=== PATIENT | female | born 1965 | race Caucasian/White ===

== ENCOUNTER → 2016-09-18 | Outpatient (CLI) | payer MEDICARE, MEDICAID ==
[~2016-09-18] MED LIST: CLIN300C93 PO; HYDR-3138 PO; HYDR200T PO; PRED20TA PO
[2016-09-18 09:30] LABS: ASPARTATE AMINO TRANSFERASE 104 U/L (15-37); BLOOD UREA NITROGEN 8 mg/dL (7-18)
[2016-09-18 15:08] LABS: ANA SCREEN POSITIVE (Negative)
[2016-09-18 15:27] LABS: RHEUMATOID FACTOR SCREEN POSITIVE (NEGATIVE)
== END | disposition home or self-care (01) ==
LOC: LAB 08:40
PROVIDERS: ATTEND Internal Medicine
DX: M32.9 Systemic lupus erythematosus, unspecified (principal); I10 Essential (primary) hypertension; K74.69 Other cirrhosis of liver; E87.1 Hypo-osmolality and hyponatremia; B18.2 Chronic viral hepatitis C
CPT/HCPCS: 36415; 80053; 80061; 82306; 84439; 84443; 85025; 85651; 86038; 86039; 86160; 86162; 86200; 86225; 86430; 86431; 86803; 87521; 87522; 87902

== ENCOUNTER 2016-09-26 09:26 | Emergency (ER) | payer MEDICARE, MEDICAID ==
[~2016-09-26] VITALS: Ht 167.6 cm; Wt 77.0 kg
[2016-09-26] MEDS ORDERED: HYDR200T PO (09:39)
[2016-09-26] MEDS ORDERED: LISI-167 PO (09:40)
[2016-09-26 10:29] VITALS: BP 158/111
[2016-09-26 11:32] LABS: BLOOD UREA NITROGEN 11 mg/dL (7-18)
[2016-09-26 11:35] LABS: ASPARTATE AMINO TRANSFERASE 110 U/L (15-37)
== END 2016-09-26 12:12 | disposition home or self-care (01) ==
LOC: ED 12:06
DX: R51 Headache (principal); H53.8 Other visual disturbances; I10 Essential (primary) hypertension
CPT/HCPCS: 36415; 70450; 80053; 83605; 85025; 99285

== ENCOUNTER 2020-06-23 22:23 | Emergency (ER) | payer MEDICARE, MEDICAID ==
[~2020-06-23] VITALS: Ht 167.6 cm; Wt 80.4 kg
[~2020-06-23 22:23] MED LIST changes: +CLIN300C9 PO; -CLIN300C93 PO; -HYDR-3138 PO; +HYDR-3237 PO; -HYDR200T PO; +HYDR200T72 PO; +LISI-167 PO
[2020-06-23] MEDS ORDERED: KETOROLAC 30 MG/1 ML IM ONE (23:00)
[2020-06-23] MEDS ORDERED: KETOROLAC 30 MG/1 ML ONE (23:10)
[2020-06-23 23:35] LABS: BASOPHILS % (AUTO) 1 % (0-1); EOSINOPHILS % (AUTO) 2 % (1-7); LYMPHOCYTES % (AUTO) 35 % (22-44); MEAN CORPUSCULAR HGB CONC 34.8 g/dL (32.4-35.8); MEAN PLATELET VOLUME 7.8 fL (7.4-10.4); MONOCYTES % (AUTO) 9 % (2-9); NEUTROPHILS % (AUTO) 53 % (42-75); PLATELET COUNT 79 x10^3/uL (130-400); RED BLOOD COUNT 4.83 x10^6/uL (3.82-5.3); RED CELL DISTRIBUTION WIDTH 13.5 % (9.6-15.2)
[2020-06-23 23:44] LABS: ALANINE AMINOTRANSFERASE 73 U/L (12-78); ALBUMIN 3.2 g/dL (3.4-5.0); ANION GAP 5 mmol/L (5-15); CALCIUM 8.7 mg/dL (8.5-10.1); CHLORIDE 108 mmol/L (98-107); CREATININE 1.07 mg/dL (0.55-1.02)
[2020-06-23 23:47] LABS: ALKALINE PHOSPHATASE 147 U/L (45-117); TOTAL PROTEIN 8.1 g/dL (6.4-8.2)
--- NOTE | 2020-06-23 23:56 | NUR ---
CC OF RIGHT SIDED BACK PAIN 03/05. PT WALKED HERE FROM [facility].
[2020-06-24 00:13] LABS: MICROSCOPIC INDICATED
[2020-06-24 00:15] LABS: MD SCAN
--- NOTE | 2020-06-24 00:30 | NUR ---
PT REPORT BETTER RELIEF OF BACK PAIN 6/10
[2020-06-24 01:34] VITALS: BP 143/90
== END 2020-06-24 01:36 | disposition home or self-care (01) ==
LOC: ED 06-24 00:04
DX: N39.0 Urinary tract infection, site not specified (principal); N10 Acute pyelonephritis; D69.6 Thrombocytopenia, unspecified; M54.5 Low back pain; I10 Essential (primary) hypertension; F17.210 Nicotine dependence, cigarettes, uncomplicated
CPT/HCPCS: 36415; 80053; 81001; 85025; 87077; 87086; 87186; 96372; 99283; 99406; J1885

== ENCOUNTER 2020-11-28 06:16 | Emergency (ER) | payer MEDICARE, MEDICAID ==
[~2020-11-28] VITALS: Ht 167.6 cm; Wt 72.5 kg
--- NOTE | 2020-11-28 06:26 | NUR ---
INITIAL PT CONTACT. PT PRESENTS TO ED C/O INCREASED PAIN, DRAINAGE AND REDNESS FROM HER RIGHT UPPER QUAD BILE DRAIN, PLACED APPROX 1 MONTH AGO. PT HAS HX CHOLECYSTITIS AND CIRROSIS, "THEY DIDN'T REMOVED THE GALLBLADDER INITIALLY BECASUE OF MY CIHRROSIS." PT ALSO REPORTS PAIN, NAUSEA AND SLIGHT DECREASE IN URINE PRODUCTION. PT PLACED ON CONTINUOUS MONITORING. CALL LIGHT AND PERSONAL BELONGINGS WITHIN REACH. ERP AT BEDSIDE, ERP STARTED AND 1ST SET OF BLOOD CULTURES OBTAINED PER ERP ORDER. PT PROVIDED WARM BLANKET AT THIS TIME. NO ADDITIONAL NEEDS
[2020-11-28] MEDS ORDERED: SODIUM CHLORIDE FLUSH 10ML SYR IVF ONE (07:00)
--- NOTE | 2020-11-28 07:01 | NUR ---
SBAR REPORT RECEIVED FROM JACK. JACK INSERTED PIV, AND MADE PT AWARE OF NEED FOR A URINE SAMPLE AND SHE IS NPO. LAB AT BEDSIDE, [place]AK[place] CALL LIGHT W/IN REACH.
--- NOTE | 2020-11-28 07:06 | NUR ---
REPORT GIVEN TO WILI.
--- NOTE | 2020-11-28 07:09 | NUR ---
SUPPLIES PROVIDED TO PT FOR UA, SHE STATES, "MY FREQUENCY HAS DECREASED." I TOLD HER WE COULD GIVE HER SOME TIME, BUT IF UNABLE TO GO WILL MOST LIKELY NEED A STRAIGHT CATH. LAKSHMI ESQUEDA. CALL LIGHT AND PT BELONGING W/IN REACH.
--- NOTE | 2020-11-28 07:16 | NUR ---
PT TO IMAGING
[2020-11-28 07:20] LABS: BASOPHILS % (AUTO) 1 % (0-1); EOSINOPHILS % (AUTO) 2 % (1-7); LYMPHOCYTES % (AUTO) 29 % (22-44); MEAN CORPUSCULAR HEMOGLOBIN 31.7 pg (27.0-34.8); MEAN CORPUSCULAR HGB CONC 34.4 g/dL (32.4-35.8); MEAN PLATELET VOLUME 8.1 fL (7.4-10.4); MONOCYTES % (AUTO) 13 % (2-9); NEUTROPHILS % (AUTO) 56 % (42-75); PLATELET COUNT 92 x10^3/uL (130-400); RED BLOOD COUNT 4.76 x10^6/uL (3.82-5.3); RED CELL DISTRIBUTION WIDTH 13.5 % (9.6-15.2)
[2020-11-28 07:29] LABS: ALANINE AMINOTRANSFERASE 41 U/L (12-78); ALBUMIN 3.1 g/dL (3.4-5.0); CALCIUM 8.9 mg/dL (8.5-10.1); CREATININE 0.83 mg/dL (0.55-1.02)
[2020-11-28 07:31] LABS: ALKALINE PHOSPHATASE 109 U/L (45-117); BILIRUBIN,TOTAL 2.4 mg/dL (0.2-1.0); TOTAL PROTEIN 8.5 g/dL (6.4-8.2)
[2020-11-28 07:37] LABS: ANION GAP 6 mmol/L (5-15); CHLORIDE 108 mmol/L (98-107)
--- NOTE | 2020-11-28 07:48 | NUR ---
PT RESTING IN VSS. LAK[place]MI WOOD. CALL LIGHT W/IN REACH. Addendum: 11/28/20 at 0754 by BRYSON PT REPORTED WANTING TO GET UP SOON TO TRY AND USE THE RESTROOM BUT IS NOT READY AT THIS TIME.
[2020-11-28 08:08] LABS: INTERNATIONAL NORMALIZED RATIO 1.19 (0.93-1.1); PROTHROMBIN TIME 12.6 Seconds (9.6-11.5)
--- NOTE | 2020-11-28 08:23 | NUR ---
PT RESTING, EYES CLOSED. CHEST RISE OBSERVED, REG/UNLABORED BREATHING. NADN, CALL LIGHT W/IN REACH
--- NOTE | 2020-11-28 08:49 | NUR ---
WOKE PT UP AND SHE STATED SHE THINKS SHE CAN PROVIDE URINE SAMPLE. PT UP TO RESTROOM AT THIS TIME.
[2020-11-28] MEDS ORDERED: LIDOCAINE-MPF 1%, 5ML ONE (08:52)
[2020-11-28] MEDS ORDERED: LIDOCAINE 1%, 2ML INFIL ONE (09:00)
--- NOTE | 2020-11-28 09:20 | NUR ---
PT RETURNED FROM BATHROOM W/O INCIDENT, WAS ABLE TO PROVIDE SAMPLE. BEDSIDE SUTURING NOW
[2020-11-28 09:47] VITALS: BP 100/64
--- NOTE | 2020-11-28 09:49 | NUR ---
Patient given discharge instructions and they have confirmed that they understand the instructions. Patient ambulatory with steady gait.
--- NOTE | 2020-11-28 09:49 | NUR ---
PT drain has new dressing in place w/ extra dressing. vss, nadn.
== END 2020-11-28 10:35 | disposition home or self-care (01) ==
LOC: ED 09:47
DX: S31.119A Laceration without foreign body of abdominal wall, unspecified quadrant without penetration into peritoneal cavity, initial encounter (principal); L03.311 Cellulitis of abdominal wall; R10.9 Unspecified abdominal pain; R88.8 Abnormal findings in other body fluids and substances; R11.0 Nausea; I10 Essential (primary) hypertension; F17.200 Nicotine dependence, unspecified, uncomplicated; Z88.8 Allergy status to other drugs, medicaments and biological substances; Z88.1 Allergy status to other antibiotic agents; X58.XXXA Exposure to other specified factors, initial encounter; Y93.89 Activity, other specified; Y92.89 Other specified places as the place of occurrence of the external cause; Y99.8 Other external cause status
CPT/HCPCS: 12001; 36415; 74022; 80053; 83605; 83690; 85025; 85610; 87040; 99284

== ENCOUNTER 2020-12-01 14:15 | Emergency (ER) | payer MEDICARE, MEDICAID ==
[~2020-12-01] VITALS: Ht 167.6 cm; Wt 69.8 kg
--- NOTE | 2020-12-01 14:47 | NUR ---
REDNESS & SWELLING TO ABD AT DRAIN PORTAL IN RUQ, ONE SUTURE NOTED. STARTED BACTRIM ON 11/28/20. PT WAS SEEN IN THIS ED ON 11/28/20. STATES WHITE DRAINAGE TUBE WAS ACCIDENTALLY CUT W/ SCISSORS LAST NOC. SCANT AMOUNT OF FLUID IN COLLECTION BAG; PT STATES SHE LAST EMPTIED BAG LAST NOC. REPORTS PAIN TO DRAINAGE SITE AND RUQ.
[2020-12-01] MEDS ORDERED: SULF1TAB24 PO (14:55)
--- NOTE | 2020-12-01 15:00 | NUR ---
report of pt from amanda hall and assuming care of pt at this time.
[2020-12-01 15:16] LABS: BASOPHILS % (AUTO) 1 % (0-1); EOSINOPHILS % (AUTO) 3 % (1-7); LYMPHOCYTES % (AUTO) 32 % (22-44); MEAN CORPUSCULAR HEMOGLOBIN 31.5 pg (27.0-34.8); MEAN CORPUSCULAR HGB CONC 34.6 g/dL (32.4-35.8); MONOCYTES % (AUTO) 12 % (2-9); NEUTROPHILS % (AUTO) 52 % (42-75); PLATELET COUNT 139 x10^3/uL (130-400); RED CELL DISTRIBUTION WIDTH 13.1 % (9.6-15.2)
[2020-12-01 15:22] LABS: ALANINE AMINOTRANSFERASE 43 U/L (12-78); ANION GAP 8 mmol/L (5-15); CALCIUM 8.5 mg/dL (8.5-10.1); CHLORIDE 105 mmol/L (98-107); CREATININE 0.93 mg/dL (0.55-1.02)
[2020-12-01 15:25] LABS: ALKALINE PHOSPHATASE 111 U/L (45-117); BILIRUBIN,TOTAL 1.5 mg/dL (0.2-1.0); TOTAL PROTEIN 8.2 g/dL (6.4-8.2)
--- NOTE | 2020-12-01 15:30 | NUR ---
PT TO CT VIA [facility] AT THIS TIME.
--- NOTE | 2020-12-01 15:41 | NUR ---
PT BACK FROM [facility] AT THIS TIME.
[2020-12-01] MEDS ORDERED: POTASSIUM CHLORIDE 20 MEQ TAB.ER.PRT PO ONE (16:00)
[2020-12-01 16:02] VITALS: BP 94/67
--- NOTE | 2020-12-01 16:04 | NUR ---
PT VSS AND UPDATED IN EMR AT THIS TIME.
[2020-12-01] MEDS ORDERED: POTASSIUM CHLORIDE 20 MEQ TAB.ER.PRT ONE (16:24)
--- NOTE | 2020-12-01 16:46 | NUR ---
PT D/C WITH D/C SUMMARY AND VERBALIZES UNDERSTANDING OF NEED FOR F/U APPT WITH GASTRO. PT DENIES ANY OTHER NEEDS PERTAINING TO THIS VISIT AND AMBULATES TO REGISTRATION DESK WITH STEADY GAIT FOR D/C HOME. PT QUESTIONS ANSWERED PRIOR TO D/C.
== END 2020-12-01 16:54 | disposition home or self-care (01) ==
LOC: ED 15:00
DX: L03.311 Cellulitis of abdominal wall (principal); E87.6 Hypokalemia; R94.31 Abnormal electrocardiogram [ECG] [EKG]; I10 Essential (primary) hypertension; Z90.49 Acquired absence of other specified parts of digestive tract; Z87.891 Personal history of nicotine dependence
CPT/HCPCS: 36415; 74150; 80053; 82140; 83690; 85025; 93005; 99285

== ENCOUNTER 2020-12-29 10:40 | Emergency (ER) | payer MEDICARE, MEDICAID ==
[~2020-12-29] VITALS: Ht 167.6 cm; Wt 71.0 kg
[~2020-12-29 10:40] MED LIST changes: +OXYC5TAB98 PO; +SULF1TAB24 PO
--- NOTE | 2020-12-29 11:09 | NUR ---
PATIENT WALKED BACK FROM [facility] WITH CHIEF C/O POST-OP SURGICAL PAIN. PATIENT HAD SURGERY ON BILE DUCT [address] AMANDA. PATIENT HAS DRAIN IN PLACE, AND REPORTS "NOT FEELING WELL SINCE SURGERY." PATIENT REPORTS PAIN AT SURGICAL PAIN AND DIARRHEA AND INTERMITTENT FEVER, DENIES N/V. SURGICAL SITE DRESSED, NO DRAINAGE FROM SITE NOTED, FLUID DRAINED INTO BAG YELLOW, NO BLOOD NOTED. CONNECTED TO MONITOR, VSS, CALL LIGHT WITHIN REACH.
--- NOTE | 2020-12-29 11:51 | NUR ---
PATIENT AMBULATED TO BATHROOM WITH STEADY GAIT FOR URINE SAMPLE.
[2020-12-29] MEDS ORDERED: HYDROmorphone 1 MG/ML, 1ML INJ IVPush PRN (12:00)
[2020-12-29 12:14] LABS: BASOPHILS % (AUTO) 1 % (0-1); EOSINOPHILS % (AUTO) 1 % (1-7); LYMPHOCYTES % (AUTO) 15 % (22-44); MEAN CORPUSCULAR HGB CONC 34.1 g/dL (32.4-35.8); MEAN PLATELET VOLUME 7.8 fL (7.4-10.4); MONOCYTES % (AUTO) 11 % (2-9); NEUTROPHILS % (AUTO) 73 % (42-75); PLATELET COUNT 109 x10^3/uL (130-400); RED CELL DISTRIBUTION WIDTH 13.8 % (9.6-15.2)
--- NOTE | 2020-12-29 12:18 | NUR ---
URINE COLLECTED AND WALKED TO LAB.
[2020-12-29 12:22] LABS: ALANINE AMINOTRANSFERASE 35 U/L (12-78); ALBUMIN 2.9 g/dL (3.4-5.0); ANION GAP 6 mmol/L (5-15); CALCIUM 8.3 mg/dL (8.5-10.1); CHLORIDE 107 mmol/L (98-107); CREATININE 0.76 mg/dL (0.55-1.02)
[2020-12-29 12:24] LABS: ALKALINE PHOSPHATASE 100 U/L (45-117); BILIRUBIN,TOTAL 2.1 mg/dL (0.2-1.0); TOTAL PROTEIN 8.6 g/dL (6.4-8.2)
--- NOTE | 2020-12-29 12:29 | NUR ---
SPOKE WITH CT, PATIENT ALLERGIC TO IODINE. PATIENT REPORTS HER THROAT "CLOSES UP" WHEN SHE HAS IODINE, DOES NOT GET PREMEDICATED BEFOREHAND. ERMD NOTIFIED, CT SCAN WITHOUT CONTRAST. INFORMED CT SCAN.
--- NOTE | 2020-12-29 13:00 | NUR ---
PATIENT TO CT SCAN.
[2020-12-29 13:05] LABS: MICROSCOPIC INDICATED
--- NOTE | 2020-12-29 13:18 | NUR ---
PATIENT BACK TO ROOM, TALKING ON PHONE, LAYING IN [place] WOOD, CONNECTED TO MONITOR, VSS, CALL LIGHT WITHIN REACH. PATIENT TO BE ADMITTED.
--- NOTE | 2020-12-29 13:37 | NUR ---
TASK RN: PT RESTING ON NINA. NADN. ESQUEDA. AWARE OF POC FOR ADMISSION AND IS AGREEABLE.
[2020-12-29] MEDS ORDERED: SODIUM CHLORIDE 0.9% 1,000ML IVBOLUS ONE (14:00)
--- NOTE | 2020-12-29 14:22 | NUR ---
MANAGER HOME AT BEDSIDE.
[2020-12-29 14:53] VITALS: BP 105/78
--- NOTE | 2020-12-29 14:55 | NUR ---
SPOKE WITH DR. TIDWELL, [facility], ROSSANA ORDERED 2 L BOLUS, DR. TIDWELL DOES NOT WANT BOLUS GIVEN, PATIENT TO BE DISCHARGED.
--- NOTE | 2020-12-29 15:02 | NUR ---
Per Dr. Goodson who spoke with Dr. Aparicio patient to be discharged, incentive spirometer given to patient and she was educated on proper use. Patient given discharge instructions and list of primary care providers and they have confirmed that they understand the instructions. Patient ambulatory with steady gait. NAD, all questions answered appropriately, denies additional needs at this time. No personal belongings left in room after discharge.
== END 2020-12-29 15:10 | disposition home or self-care (01) ==
LOC: ED 11:15 → EDIP 13:56 → UNDOADMIN 13:56 → ED 15:04
DX: B19.20 Unspecified viral hepatitis C without hepatic coma (principal); I10 Essential (primary) hypertension; F17.200 Nicotine dependence, unspecified, uncomplicated
CPT/HCPCS: 36415; 71045; 74176; 76700; 80053; 81001; 83605; 85025; 87040; 87086; 99285

== ENCOUNTER 2021-02-05 11:48 | Emergency (ER) | payer MEDICARE, MEDICAID ==
[~2021-02-05] VITALS: Ht 167.6 cm; Wt 71.6 kg
--- NOTE | 2021-02-05 12:08 | NUR ---
HOSPITAL AIDE. PT CALLED TO TRIAGE X1, NIL.
--- NOTE | 2021-02-05 12:15 | NUR ---
CALLED X2 FROM [facility].
[2021-02-05 13:22] LABS: BASOPHILS % (AUTO) 1 % (0-1); EOSINOPHILS % (AUTO) 1 % (1-7); LYMPHOCYTES % (AUTO) 13 % (22-44); MEAN CORPUSCULAR HEMOGLOBIN 31.3 pg (27.0-34.8); MEAN CORPUSCULAR HGB CONC 33.7 g/dL (32.4-35.8); MEAN PLATELET VOLUME 8.2 fL (7.4-10.4); MONOCYTES % (AUTO) 12 % (2-9); NEUTROPHILS % (AUTO) 73 % (42-75); PLATELET COUNT 73 x10^3/uL (130-400); RED BLOOD COUNT 4.56 x10^6/uL (3.82-5.3)
[2021-02-05 13:31] LABS: ALANINE AMINOTRANSFERASE 31 U/L (12-78); ALBUMIN 2.7 g/dL (3.4-5.0); CALCIUM 8.6 mg/dL (8.5-10.1); CHLORIDE 113 mmol/L (98-107); CREATININE 0.78 mg/dL (0.55-1.02)
[2021-02-05 13:35] LABS: ALKALINE PHOSPHATASE 133 U/L (45-117); BILIRUBIN,TOTAL 0.9 mg/dL (0.2-1.0); TOTAL PROTEIN 8.6 g/dL (6.4-8.2)
[2021-02-05 13:54] LABS: ANION GAP 6 mmol/L (5-15)
--- NOTE | 2021-02-05 16:11 | NUR ---
NOT LOBBY X1
--- NOTE | 2021-02-05 16:58 | NUR ---
PT TO RM FROM [facility] AT THIS TIME, PLACED ON BP, CONT PULSE OX. PT AMBULATORY WITH STEADY GAIT, UA COLLECTED AND SENT TO LAB
[2021-02-05 17:06] VITALS: BP 105/71
[2021-02-05 17:17] LABS: MICROSCOPIC INDICATED
== END 2021-02-05 18:14 | disposition home or self-care (01) ==
LOC: ED 17:26
DX: R19.7 Diarrhea, unspecified (principal); G89.29 Other chronic pain; R10.9 Unspecified abdominal pain
CPT/HCPCS: 36415; 76700; 80053; 81001; 83690; 84703; 85025; 87086; 93005; 99285